=== PATIENT | female | born 1955 | race American Indian/Alaskan Native ===

== ENCOUNTER 2020-05-29 09:31 | Outpatient (CLI) | payer MEDICARE ==
--- NOTE | 2020-05-29 11:52 | Magnetic Resonance Report ---
MRI BRAIN 05/29/2020 INDICATION / CLINICAL INFORMATION: Blurred vision. Visual disturbance. Gadolinium contrast 15 cc. TECHNIQUE: Multiplanar, multisequence MR images of the brain were obtained. COMPARISON: None available. FINDINGS: BRAIN / INTRACRANIAL CONTENTS: Unenhanced and enhanced MR images of the brain were obtained. Detailed views of the orbits were also obtained. There is no evidence of acute intracranial abnormality. Ventricles and sulci are normal in size and s hape. There is no evidence of ischemic injury, demyelination, hemorrhage, or mass. There are no abnormal ex tra-axial fluid collections. Postcontrast images and a straight no abnormal contrast enhancement. Incidental note is made of an empty sella, generally considered to be of no acute clinical significan ce. Detailed views of the orbits demonstrate no evidence of abnormal intraorbital mass, enhancement, or i nflammation. Retro-orbital structures are unremarkable. EXTRACRANIAL: There is been expanded opacified right ethmoid air cell. This may represent a mucocele, . There is no evidence of intraorbital associated abnormality.. CRANIOCERVICAL JUNCTION: No significant abnormality. VASCULAR FLOW-VOIDS: No significant abnormality. IMPRESSION: Negative unenhanced MRI of the brain and orbits. Incidental right ethmoid mucocele Signer Name: Eron Wilkerson MD Signed: 05/29/2020 11:47 AM Workstation Name: [id number]
== END 2020-05-29 09:32 | disposition home or self-care (01) ==
LOC: MRI 09:31
PROVIDERS: ATTEND Ophthalmology
DX: H53.47 Heteronymous bilateral field defects (principal)
CPT/HCPCS: 70553; A9575

== ENCOUNTER 2021-09-28 05:54 | Emergency (ER) | payer MEDICARE, OTHER ==
[2021-09-28] MEDS ORDERED: ONDANSETRON 4 MG/2 ML INJ IV ONE (08:16)
[2021-09-28 08:25] VITALS: BP 153/77
[2021-09-28 08:43] LABS: Bilirubin,Urine NEG (Negative); Blood,Urine MOD (Negative); Color,Urine Yellow (Yellow); Protein,Urine <15 mg/dL mg/dL (Negative); Urobilinogen,Urine < 2.0 mg/dL (<2.0)
[2021-09-28 08:50] LABS: Mucus,Urine FEW /HPF
[2021-09-28 09:01] LABS: Hematocrit 33.1 % (30.3-42.9); Hemoglobin 11.5 gm/dl (10.1-14.3); Mean Corpuscular HGB Conc 35 % (30-34); Mean Corpuscular Volume 71 fl (79-97); Platelet Count 181 K/mm3 (140-440); Red Blood Count 4.68 M/mm3 (3.65-5.03); Red Cell Distribution Width 15.9 % (13.2-15.2)
[2021-09-28 09:19] LABS: Alanine Aminotransferase 10 units/L (7-56); Albumin 4.6 g/dL (3.9-5); BUN/Creatinine Ratio 12; Bilirubin,Direct 0.2 mg/dL (0-0.2); Blood Urea Nitrogen 12 mg/dL (7-17); Calcium 9.8 mg/dL (8.4-10.2); Hemolysis Index 4
--- NOTE | 2021-09-28 09:28 | Emergency Department Report ---
ED Abdominal Pain HPI - General Chief Complaint: Abdominal Pain Stated Complaint: ABD PAIN Source: patient Mode of arrival: Ambulatory Limitations: No Limitations - History of Present Illness Initial Comments: 66-year-old female presents to the ED complaining of abdominal pain x2 weeks. She was initially seen in her primary care doctor on September 21 diagnosed with a sinus infection and had lab work drawn she states that she was started on Augmentin 500 mg. States that her abdominal pain did not get any better and called her PCP who told her to report to the ED on September 23. Patient went to [facility] and was diagnosed with gastritis in a urinary tract infection. She was started on ciprofloxacin 500 mg twice a day. Patient states that she has some improvement but continues to have abdominal pain. She states she did have a CT of the abdominal at [facility] but did not show any abnormality. Patient is only able to show discharge instruction from [facility]. Patient denies any nausea vomiting or diarrhea. Denies any dysuria at present time. she complains of just generalized abdominal pain that she is unable to describe. She states that pain is a 3 out of 10. Patient is a history of migraine, hypertension, and gout. Patient is alert and oriented x3.No acute distress noted.No ill appearance noted. MD Complaint: abdominal pain Onset/Timin -: week(s) Location: diffuse Radiation: none Migration to: no migration Severity scale (0 -10): 5 Improves With: nothing Worsens With: nothing - Related Data Allergies Allergy/AdvReac Type Severity Reaction Status Date / Time No Known Allergies Allergy Verified 09/28/21 08:04 ED Review of Systems ROS: Stated complaint: ABD PAIN Other details as noted in HPI Constitutional: denies: chills, fever Eyes: denies: eye pain, eye discharge, vision change ENT: denies: ear pain, throat pain Respiratory: denies: cough, shortness of breath, wheezing Cardiovascular: denies: chest pain, palpitations Endocrine: no symptoms reported Gastrointestinal: denies: abdominal pain, nausea, diarrhea Genitourinary: denies: urgency, dysuria, discharge Musculoskeletal: denies: back pain, joint swelling, arthralgia Skin: denies: rash, lesions Neurological: denies: headache, weakness, paresthesias Psychiatric: denies: anxiety, depression Hematological/Lymphatic: denies: easy bleeding, easy bruising ED Past Medical Hx - Past Medical History Previous Medical History?: Yes Hx Hypertension: Yes Hx GERD: Yes Hx Headaches / Migraines: Yes Additional medical history: gout - Surgical History Past Surgical History?: Yes Additional Surgical History: bilateral rotator cuff - Social History Smoking Status: Never Smoker Substance Use Type: None ED Physical Exam - General Limitations: No Limitations General appearance: alert, in no apparent distress - Head Head exam: Present: atraumatic, normocephalic - Eye Eye exam: Present: normal appearance - ENT ENT exam: Present: mucous membranes moist - Neck Neck exam: Present: normal inspection - Respiratory Respiratory exam: Present: normal lung sounds bilaterally. Absent: respiratory distress - Cardiovascular Cardiovascular Exam: Present: regular rate, normal rhythm. Absent: systolic murmur, diastolic murmur, rubs, gallop - GI/Abdominal GI/Abdominal exam: Present: soft, normal bowel sounds - Extremities Exam Extremities exam: Present: normal inspection - Back Exam Back exam: Present: normal inspection - Neurological Exam Neurological exam: Present: alert, oriented X3 - Psychiatric Psychiatric exam: Present: normal affect, normal mood - Skin Skin exam: Present: warm, dry, intact, normal color. Absent: rash ED Course Vital Signs 09/28/21 09/28/21 06:36 08:16 Temperature 99.5 F 98.5 F Pulse Rate 102 H 89 Respiratory 18 18 Rate Blood Pressure 126/82 153/77 Blood Pressure 153/77 [Left] O2 Sat by Pulse 98 100 Oximetry ED Medical Decision Making - Lab Data Result diagrams: 09/28/21 08:48 09/28/21 08:48 - Medical Decision Making 66-year-old female presents to the ED complaining of abdominal pain x2 weeks. She was initially seen in her primary care doctor on September 21 diagnosed with a sinus infection and had lab work drawn she states that she was started on Augmentin 500 mg. States that her abdominal pain did not get any better and called her PCP who told her to report to the ED on September 23. Patient went to [facility] and was diagnosed with gastritis in a urinary tract infection. She was started on ciprofloxacin 500 mg twice a day. Patient states that she has some improvement but continues to have abdominal pain. She states she did have a CT of the abdominal at [facility] but did not show any abnormality. Patient is only able to show discharge instruction from [facility]. Patient denies any nausea vomiting or diarrhea. Denies any dysuria at present time. she complains of just generalized abdominal pain that she is unable to describe. She states that pain is a 3 out of 10. Patient is a history of migraine, hypertension, and gout. Patient is alert and oriented x3.No acute distress noted.No ill appearance noted. Patient left prior to getting CT results. Critical care attestation.: If time is entered above; I have spent that time in minutes in the direct care of this critically ill patient, excluding procedure time. ED Disposition Clinical Impression: Abdominal pain Disposition: 07 LEFT AWOL/ELOPED Is pt being admited?: No Does the pt Need Aspirin: No Condition: Stable Instructions: Abdominal Pain (ED) Referrals: LEORA FREEMAN MD [Primary Care Provider] - 3-5 Days
--- NOTE | 2021-09-28 10:01 | Cat Scan Report ---
CT ABDOMEN AND PELVIS WITH CONTRAST HISTORY: Abdominal Pain COMPARISON: None TECHNIQUE: Routine abdominal and pelvic CT exam performed following intravenous contrast administrat ion.. All CT scans at this location are performed using CT dose reduction for ALARA by means of autom ated exposure control. FINDINGS: CT ABDOMEN: Lung Bases: No significant abnormality. Liver: No significant abnormality. Biliary: Gallbladder is surgically absent. Spleen: No significant abnormality. Unenlarged. Pancreas: No significant abnormality. Adrenals: No significant abnormality. Kidneys: Mild cortical scarring in the right kidney. Small simple cyst in the left kidney. Lymphatics: No lymphadenopathy. Vasculature: No significant abnormality. Bowel/Peritoneum: There is moderate diverticulitis in the junction of the descending and sigmoid colo n. There is no personal abscess. CT PELVIC: : No significant abnormality. Lymphatics: No lymphadenopathy. Osseous Structures: No aggressive appearing osseous lesions. Additional Findings: None IMPRESSION: 1. Moderate diverticulitis in the junction of the descending and sigmoid colon without abscess. Signer Name: Elmo Garcia MD Signed: 09/28/2021 9:57 AM Workstation Name: [id number]
== END 2021-09-28 11:30 | disposition left against medical advice (07) ==
LOC: ED 05:54
DX: R10.84 Generalized abdominal pain (principal); I10 Essential (primary) hypertension; K21.9 Gastro-esophageal reflux disease without esophagitis; G43.909 Migraine, unspecified, not intractable, without status migrainosus; M10.9 Gout, unspecified; Z98.890 Other specified postprocedural states
CPT/HCPCS: 36415; 74177; 80048; 80076; 81001; 83690; 85027; 87086; 96374; 99284; J2405; Q9967